=== PATIENT | male | born 1985 | race Caucasian/White ===

== ENCOUNTER 2024-05-04 08:00 | Outpatient (RCR) | payer BC, SELFPAY ==
--- NOTE | 2024-05-04 10:10 | BH.SGPN.GN ---
Behaviors/Verbalizations/Mental Status: [] Eye contact is good. Motor activity is appropriate. Appearance is casual. Speech is Appropriate. Mood is anxious. Affect is congruent. Thoughts are linear and logical. No evidence of psychosis. Client Response/Progress/Benefit: [] Pt was an active participant during group discussions and group activities. This portion of group was very psychoeducation heavy and pt was attentive during psychoeducation. Engaged during activity in which they identified which type of foods (i.e. carbs, sugar, salt, fast food, caffeine, etc) they seek out when sad, tired, angry, stressed, anxious, etc. Pt was able to identify the impact that certain foods have on their mental health through group example which was beneficial. Benefited from increased awareness of the connection between nutrition and mental health. Will continue in IOP to prevent decompensation, decrease anxiety, improve healthy coping, and improve functioning. Narrative Note: []
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
--- NOTE | 2024-05-05 09:40 | BH.NA ---
Physical Data Vital Signs Pulse Rate: 70 Blood Pressure: 164/99 Height/Weight Height: 1.8 m Weight:: 95.254 kg Weight in Pounds: 210.0 lbs Current Medication Compliance Medication Compliance Do you take your medication as prescribed?: Yes Nutritional History Appetite Nutritional Instructions: Describe your appetite:: Good Additional nutritional information:: Client states he has lost 8lbs in the last month being more intentional with his eating, stating he would like to be around 190lbs. Functional Assessment Sleep Pattern Describe any problems with sleeping: Client states he is sleeping about 6 hours per night. Sensory/Communication Assess Communication Problems Do you have difficulty understanding what people are saying?: No Learning Assessment Education What is your level of education?: Bachelor Degree Medical Problems/History Cardiac Conditions Cardiovascular: Hypertension Neurological Conditions Neurological: Other (See comments) (diagnosed with epilepsy at age 29. Client had 4 seizures in 2023. Client states his dose of Keppra was increased and he will be able to drive again per his neurologist at the end of May.) Pain Assessment Do you have acute or chronic pain?: No Surgical History Surgical History Have you had any surgeries? If so, list type and date:: Yes (appy, wisdom teeth) Substance Abuse Substance Abuse Please describe substance abuse in the last 30 days:: Client states he has been using alcohol to help him cope, stating he had been drinking 2-3 beers most days for the last few years. Client states over the last 3 weeks, he has cut his alcohol intake down to 6-10 beers per week. Client states he intends on cutting this back even further while he is in IOP. Client denies tobacco or substance use. Client states he drinks about 400-600mg of caffeine per day currently between coffee and green tea. Client states he plans on cutting back his daily caffeine use. Mental Status Summary Mental Status Significant Findings/Observations on Appearance and Mood:: Client is alert and oriented x 4. Client is casually groomed with good hygiene. Client is cooperative with assessment. Client makes good eye contact. Client's voice has normal rate and volume. Client appears mildly anxious and is slightly tearful during assessment. Client has a mood congruent affect. Client makes logical associations and has normal processing. Client denies delusions/hallucinations. Client denies SI. Suicide Assessment Suicidal Ideation Are you currently or have you been suicidal in the past?: No Suicidal Intentional Rating Scale (SIRS): No suicidal thoughts (past or present) Physician Notification Past Psychiatric History MH Treatment Hx Past Psychiatric Medications:: None. Age of first mental health symptoms: Client states he has had symptoms of anxiety and depression since he was young. Client did briefly get counseling around 2018 when his grandpa but has never been on medication for mental health. Describe (age, circumstance, etc) any past hospitalizations: None. Current providers for mental health treatment (counselor, psychiatrist, keycase assembler, etc.): None. Fall Risk Assessment Age Age: Less than 60 Mental Status Mental Status: Willing & able to ask for assistance when needed Physical Status Physical Status: No problems Impairments Impairments: None Elimination Elimination: Continent AND independent Gait or Balance Gait or Balance: Walks independently Hx of Falls History of falls in the past 6 months: No known history Medications/Substances Medications/substances used within the past 24 hours or ordered to administer: None of the medications/substances list above Total Score Total Points:: 0 RN Summary of Impressions Impressions Recommendations Impressions: Psychiatric Issues: 1. Generalized anxiety disorder 2. OCD 3. Major depressive disorder, recurrent, moderate 4. Work issues Impression: General Medical Conditions: Client has been on Losartan for hypertension for about 10 years. Client's BP today was 164/99. Client states his BP is not usually this high, but recognizes that he is anxious about being here and tearful after talking with the psychiatrist. Level of Care How do the client's current symptoms and functional deficits support need for this level of care?: Client was referred to [facility] by his mother for increased anxiety and panic attacks. Client states he had been throwing up in the morning before work and having panic attacks at work prior to leaving his job in April 2024. Client states he has always been a hard worker and taken pride in his work, but that work was becoming overwhelming and he felt he had a mental breakdown from pushing himself so hard. Client states he feels a lot of emotions are coming to the surface after his traumatic past. Client states he has been drinking alcohol mostly daily for several years to help him cope. Client is very nervous to start medication for his mental health, as he has never been on any before, but admits that he is willing to try it to help him be able to cope better. Client states he is looking forward to learning things in group and getting help with his anxiety so he can be a good example for his daughters. Client denies SI. IOP will promote gains and prevent further decompensation while providing social support and skills training.
--- NOTE | 2024-05-05 10:10 | BH.SGPN.GN ---
Behaviors/Verbalizations/Mental Status: []Pt alert and oriented, neatly dressed and groomed. Eye contact good. Motor activity appropriate. Speech within normal limits. Affect congruent, mood euthymic. Thoughts linear, logical, no signs of hallucinations or delusions. Client Response/Progress/Benefit: []Pt participated during small group discussions. Attentive during psychoeducation about defense mechanisms. Showed engagement during small group discussions and helped group identify which defense mechanisms were maladaptive, adaptive, or ?somewhere in the xavier.? Pt worked with small group on identifying how each defense mechanism can impact mental health and gave examples. Pt stated it helped him to learn that not all defense mechanisms are bad. Seemed to benefit from gaining awareness about the different defense mechanisms. Pt to continue IOP tx to prevent decompensation, increase ability to use dialectical thinking, and improve daily functioning. Narrative Note: []
[2024-05-05 10:11] VITALS: BP 164/99; PULSE 70
--- NOTE | 2024-05-05 11:10 | BH.SGPN.GN ---
Behaviors/Verbalizations/Mental Status: []Pt alert and oriented, neatly dressed and groomed. Eye contact good. Motor activity appropriate. Speech within normal limits. Affect congruent, mood hopeful. Thoughts linear, logical, no signs of hallucinations or delusions. Client Response/Progress/Benefit: [] Pt responded well to session, participating in activity and small group discussion. Group reviewed the rest of the defense mechanisms and discussed how these are adaptive, maladaptive, or somewhere in the xavier. Pt's defense mechanisms included anticipation, self-discipline, and denial. Pt stated anticipation is good for some people, but it is maladaptive for pt because ?I overthink and over prepare so I?m more stressed.? Pt listened to physical chemistry teacher teach different skills to help pt?s cope with or change their defense mechanisms. Pt appeared to benefit from gaining insight to the different defense mechanisms and learning coping skills. Pt will continue IOP tx to prevent decompensation, gain healthy coping skills, and improve daily functioning. Narrative Note: []
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
--- NOTE | 2024-05-05 13:05 | BH.DR.ITP ---
Initial Treatment Plan Patient Information Visit Information: ADMISSION DATE: EXPECTED LOS: 4-6 weeks Problems/Symptoms Problem #1:: Anxiety Symptom:: Worry, rumination, intrusive thoughts and rituals, panic attacks Problem #2:: Depression Symptom:: Sadness, biological disruption of sleep, guilt, decreased concentration, low energy
--- NOTE | 2024-05-07 09:05 | BH.SGPN.GN ---
Behaviors/Verbalizations/Mental Status: [] Eye contact is good. Motor activity is appropriate. Appearance is casual. Speech is Appropriate. Mood is anxious. Affect is congruent. Thoughts are linear and logical. No evidence of psychosis. Reviewed daily check in sheet and no reports of suicidal ideations or intent. Client Response/Progress/Benefit: [] Pt participated at times during the group discussions. Attentive. Pt shared that this is the ?end of his first week in IOP? and he is beginning to feel more comfortable. He has learned from groups and is attempting to change long-held beliefs. ? I?m not hyper-fixating on completing tasks?. Feels encouraged and ? not alone?. Progress noted. Benefited from group support, encouragement, and feedback. Will continue in [facility] to prevent decompensation, increase healthy coping, and improve functioning Narrative Note: []
--- NOTE | 2024-05-07 10:15 | BH.SGPN.GN ---
Behaviors/Verbalizations/Mental Status: []Eye contact is good. Motor activity is appropriate. Appearance is casual. Speech is Appropriate. Mood is anxious. Affect is congruent. Thoughts are linear and logical. No evidence of psychosis. Client Response/Progress/Benefit: [] Pt receptive to session AEB listening attentively to others and taking notes. Pt attentive and contributed throughout psychoeducation on the cognitive triangle and maintenance cycles. Pt engaged during group discussion reviewing the impact of daily activities and behaviors in either reinforcing unhealthy maintenance cycles and depression or assisting in reducing symptoms (?down? vs ?up? activities). Pt participated during interactive discussion in which pt identified common up activities (being around family, showering, walks, uplifting music, meditation, talking to supports) and down activities (doom scrolling, staying in bed, substances, self-loathing, not showering, cancelling plans). Appeared to benefit from increased awareness of current behaviors and impact these have on mental health. Will continue IOP to prevent decompensation, gain healthy coping skills. Narrative Note: []
--- NOTE | 2024-05-07 11:15 | BH.SGPN.GN ---
Behaviors/Verbalizations/Mental Status: []Pt alert and oriented, casually dressed and groomed. Eye contact good. Motor activity appropriate. Speech within normal limits. Affect congruent, mood euthymic. Thoughts linear, logical, no signs of hallucinations or delusions. Client Response/Progress/Benefit: [] Pt responded well to session, attentive and engaged in group discussions and activity. Actively engaged in continued discussion about up activities and down activities. Client stated up activities would like to practice to include: Interacting with pets and kids, food prep, and good conversation with supports. Active participant as group discussed values and the benefits that knowing one's values can have on one's mental health. Benefited from increased awareness of their up activities and how incorporating their values into behavioral activation goals can positively impact mental health. Will continue in IOP to prevent decompensation, challenge distortions, and increase healthy coping skills.
== END 2024-05-10 23:59 ==
LOC: BHIOP 08:00
PROVIDERS: Referring Provider Psychiatry & Neurology Psychiatry; Visit Provider Psychiatry & Neurology Psychiatry
DX: F41.1 Generalized anxiety disorder (principal); F33.1 Major depressive disorder, recurrent, moderate; F42.9 Obsessive-compulsive disorder, unspecified
CPT/HCPCS: S9480; 90837; 90853

== ENCOUNTER 2024-05-11 07:10 | Outpatient (RCR) | payer BC, SELFPAY ==
[2024-05-11 00:36] VITALS: BP 164/99; PULSE 70
== END 2024-06-09 23:59 ==
LOC: BHIOP 07:10
PROVIDERS: Referring Provider Psychiatry & Neurology Psychiatry; Visit Provider Psychiatry & Neurology Psychiatry
DX: F41.1 Generalized anxiety disorder (principal); F42.9 Obsessive-compulsive disorder, unspecified; F33.1 Major depressive disorder, recurrent, moderate
CPT/HCPCS: S9480; 90834; 90837; 90853

== ENCOUNTER 2024-06-10 07:34 | Outpatient (RCR) | payer BC, SELFPAY ==
[2024-06-10 00:33] VITALS: BP 164/99; PULSE 70
== END 2024-06-10 12:08 | disposition home or self-care (01) ==
LOC: BHIOP 07:34
PROVIDERS: Referring Provider Psychiatry & Neurology Psychiatry; Visit Provider Psychiatry & Neurology Psychiatry
DX: F41.1 Generalized anxiety disorder (principal); F42.9 Obsessive-compulsive disorder, unspecified; F33.1 Major depressive disorder, recurrent, moderate
CPT/HCPCS: S9480; 90834; 90853